=== PATIENT | male | born 1955 | race Caucasian/White ===

== ENCOUNTER 2020-09-16 07:50 | Outpatient (CLI) | payer BC, SELFPAY ==
[2020-09-16 08:13] LABS: Basophils Absolute Auto 0.1 K/mm3 (0.0-0.1); Basophils Percent Auto 1.4 % (0.2-1.2); Eosinophils Absolute Auto 0.2 K/mm3 (0-0.3); Eosinophils Percent Auto 2.7 % (0-4.4); Hematocrit 43.6 % (42.0-52.0); Hemoglobin 14.8 g/dL (14.0-18.0); Immature Granulocyte Absolute 0.04 K/mm3 (0.00-0.031); Immature Granulocyte Percent A 0.7 % (0-0.5); Lymphocytes Absolute Auto 1.03 K/mm3 (0.9-3.2); Lymphocytes Percent Auto 17.7 % (18.3-44.2); Mean Corpuscular HGB Conc 33.9 g/dl (32-36); Mean Corpuscular Hemoglobin 30.4 pg (26-34); Mean Corpuscular Volume 89.5 fl (80-100); Mean Platelet Volume 10.7 fl (7.4-10.4); Monocytes Absolute Auto 0.5 K/mm3 (0.1-0.6); Monocytes Percent Auto 8.1 % (2.6-8.5); Neutrophils Percent Auto 69.4 % (45.5-73.1); Platelet Count Result 147 k/mm3 (150-375); Red Blood Count 4.87 M/mm3 (4.6-6.20); White Blood Count 5.8 K/mm3 (4.5-10.0)
[2020-09-16 08:35] LABS: Albumin Level 4.4 g/dL (3.5-5.1); Alkaline Phosphatase 77 U/L (38-126); Aspartate Amino Transferase 36 U/L (17-59); Bilirubin,Total 0.6 mg/dL (0.2-1.3); Blood Urea Nitrogen 19 mg/dL (9-20); Carbon Dioxide 30 mmol/L (22-30); Cholesterol 116 mg/dL (0-200); Estimated Glomerular Filt Rate > 60; Glucose 138 mg/dL (75-110); Triglycerides 67 mg/dL (<150)
[2020-09-16 08:38] LABS: LDL Cholesterol Direct 44 mg/dL
[2020-09-16 08:58] LABS: Prostate Specific Antigen 1.9 ng/mL (< OR = 4.0)
[2020-09-16 09:41] LABS: Alanine Aminotransferase 38 U/L (4-50); Anion Gap 7 mmol/L (8-16); Chloride 104 mmol/L (98-107); HDL Direct 51 mg/dL; Potassium 4.2 mmol/L (3.4-5.0); Sodium 141 mmol/L (137-145)
[2020-09-16 12:32] LABS: Free T4 Free Thyroxine 1.07 ng/mL (0.78-2.19)
[2020-09-17 09:26] LABS: Hemoglobin A1C 6.8 % (<5.7)
== END 2020-09-16 07:51 | disposition home or self-care (01) ==
PROVIDERS: PCP Family Medicine; Visit Provider Physician Assistant Medical
DX: R41.3 Other amnesia (principal); Z12.5 Encounter for screening for malignant neoplasm of prostate; E03.9 Hypothyroidism, unspecified; I10 Essential (primary) hypertension; E78.5 Hyperlipidemia, unspecified
CPT/HCPCS: 36415; 80053; 80061; 82607; 83036; 84153; 84439; 84443; 85025; G0103

== ENCOUNTER 2020-09-24 13:06 | Outpatient (CLI) | payer BC, SELFPAY ==
[2020-09-30 10:34] LABS: Testosterone Free 62.4 pg/mL (35.0-155.0); Testosterone Total 378 ng/dL (250-1100)
== END 2020-09-24 13:07 | disposition home or self-care (01) ==
PROVIDERS: PCP Family Medicine; Visit Provider Physician Assistant Medical
DX: F32.9 Major depressive disorder, single episode, unspecified (principal); R41.3 Other amnesia
CPT/HCPCS: 36415; 84402; 84403

== ENCOUNTER 2020-10-08 07:52 | Outpatient (CLI) | payer BC, SELFPAY ==
--- NOTE | ~2020-10-08 | CT_ITS ---
EXAMINATION: CT abdomen w con DATE: 10/08/2020 08:24 INDICATION: Mid abdominal pain. History of inguinal hernia and ventral hernia TECHNIQUE: Computed tomography (CT) of the abdomen was performed with 100 cc Omnipaque 350 intravenou s contrast. Automated exposure control and iterative reconstruction technique were employed. Exam dos e: 1203.07 mGy-cm total exam DLP. COMPARISON: None. FINDINGS: Minimal discoid atelectasis or scarring at the lung bases. Heart size is normal. No pericar dial or pleural effusion. 12 mm distal right paraesophageal lymph node. There is soft tissue thickening of the distal esophagea l wall. Consider esophageal workup by barium study or endoscopy. Status post cholecystectomy. No bile duct or pancreatic duct dilatation. No hepatic, splenic, pancrea tic, and adrenal or renal space-occupying mass lesion is evident with exception of a few small renal cysts. Splenomegaly. Normal caliber of the abdominal aorta. No intraperitoneal or retroperitoneal or pelvic mass lesion or adenopathy or ascites. No bowel obstruction, bowel wall thickening, pneumatosis or intraperitoneal free air. Small fat-containing umbilical hernia. Diffuse idiopathic skeletal hyperostosis of the thoracic spine. Multilevel degenerative disc disease of lumbar spine, greatest at L4-5 and L5-S1. Right sacroiliac joint ankylosis. IMPRESSION: Soft tissue thickening of distal esophageal wall and 12 mm right paraesophageal lymph no yumiko; consider esophageal workup by barium examination or endoscopy Status post cholecystectomy Splenomegaly Reviewed, dictated and finalized at [facility]. Reviewed, dictated and finalized at [facility]. IMPRESSION: Soft tissue thickening of distal esophageal wall and 12 mm right p araesophageal lymph nodes; consider esophageal workup by barium examination or endoscopy Status post cholecystectomy Splenomegaly
== END 2020-10-08 07:53 | disposition home or self-care (01) ==
PROVIDERS: PCP Family Medicine; Visit Provider Physician Assistant Medical
DX: K43.9 Ventral hernia without obstruction or gangrene (principal); Z90.49 Acquired absence of other specified parts of digestive tract; R16.1 Splenomegaly, not elsewhere classified
CPT/HCPCS: 74160; Q9967

== ENCOUNTER → 2020-10-21 15:11 | Outpatient (REF) | payer BC, SELFPAY | LOC: ANHLAB 15:11 | PROVIDERS: PCP Family Medicine; Visit Provider Nurse Practitioner | DX: R22.9 Localized swelling, mass and lump, unspecified (principal); L72.0 Epidermal cyst; L57.0 Actinic keratosis | CPT/HCPCS: 88304; 88305 ==

== ENCOUNTER 2020-10-27 09:54 | Outpatient (CLI) | payer BC, SELFPAY ==
--- NOTE | ~2020-10-27 | US_ITS ---
US abdomen complete EXAMINATION: US Abdomen Complete INDICATION: Splenomegaly PROCEDURE: Realtime High Resolution abdomen ultrasound. COMPARISON: Ultrasound dated 12/07/2017 FINDINGS: Gallbladder is surgically absent. Common bile duct measures 6 mm. Liver echotexture within normal limits without focal mass. Pancreas within normal limits. Pancreati c tail is obscured by bowel gas. Spleen is enlarged measuring 13.8 cm. Renal echotexture is within n ormal limits bilaterally without hydronephrosis, contour deforming mass or renal stone. Right kidney measures 10 cm. Left kidney measures 10.1 cm. Visualized aspects of the aorta and IVC are within normal limits. Portal vein is patent. No sonograph ic Connell's sign indicated by the technologist. IMPRESSION: 1: Splenomegaly. Reviewed, dictated and finalized at [facility]. IMPRESSION: 1: Splenomegaly.
== END 2020-10-27 09:55 | disposition home or self-care (01) ==
PROVIDERS: PCP Family Medicine; Visit Provider Physician Assistant Medical
DX: R16.1 Splenomegaly, not elsewhere classified (principal)
CPT/HCPCS: 76700

== ENCOUNTER 2020-10-29 12:20 | Outpatient (CLI) | payer BC, SELFPAY ==
[2020-10-29 13:24] LABS: Alanine Aminotransferase 41 U/L (4-50); Albumin Level 4.6 g/dL (3.5-5.1); Alkaline Phosphatase 103 U/L (38-126); Aspartate Amino Transferase 36 U/L (17-59); Bilirubin,Total 0.9 mg/dL (0.2-1.3); Cholesterol 104 mg/dL (0-200); Creatine Kinase 58 U/L (55-170); HDL Direct 47 mg/dL; Triglycerides 67 mg/dL (<150)
[2020-10-29 13:36] LABS: LDL Cholesterol Direct 38 mg/dL
== END 2020-10-29 12:21 | disposition home or self-care (01) ==
LOC: ANHLAB 12:27
PROVIDERS: PCP Family Medicine; Visit Provider Nurse Practitioner Family
DX: R74.8 Abnormal levels of other serum enzymes (principal); E78.2 Mixed hyperlipidemia
CPT/HCPCS: 36415; 80061; 80076; 82550

== ENCOUNTER 2020-10-30 00:21 | Day surgery (SDC) | payer BC, SELFPAY ==
[2020-10-15 14:25] VITALS: BMI 43.0
[2020-10-30 07:00] VITALS: BP 154/87; PULSE 64; RESP 18; TEMP 36.4; O2SAT 97; BMI 42.7
[2020-10-30] MEDS: LACTATED RINGERS 1,000 ML 30 ML IV CONT (07:09)
--- NOTE | 2020-10-30 07:17 | WPDANESEPPF ---
Anes - Initial Pre Proc Eval Procedure: Operation Date: 10/30/20 08:00 Proposed Procedures p Esophagogastroduodenoscopy & Screening Colonoscopy - Jorge Luis Arias MD Date/Time: 10/30/20 07:17 Surgeon: Jorge Luis Arias MD Pre Op Diagnosis: neoplasm, dysphagia Patient Data Age: 65 Gender: M Height: 1.75 m Weight: 131.5 kg Last Vital Signs Temp 36.4 C L 10/30/20 07:00 Pulse 64 10/30/20 07:00 Resp 18 10/30/20 07:00 BP 154/87 H 10/30/20 07:00 Pulse Ox 97 10/30/20 07:00 Allergies Allergy/AdvReac Type Severity Reaction Status Date / Time amoxicillin Allergy Unknown Unknown Verified 10/30/20 06:58 Penicillins Allergy Unknown FACIAL Verified 10/30/20 06:58 SWELLING Home Medications Medication Instructions Recorded Confirmed Type celecoxib 200 mg capsule 200 mg PO DAILY #90 cap 12/05/19 10/30/20 Rx levothyroxine 125 mcg tablet 125 mcg PO DAILY #90 tablet 05/07/20 10/30/20 Rx citalopram 40 mg tablet 40 mg PO DAILY #90 tablet 09/10/20 10/30/20 Rx atorvastatin 80 mg tablet 80 mg PO DAILY #90 tablet 09/24/20 10/30/20 Rx bupropion HCl 150 mg 24 hr tablet, 150 mg PO QAM #30 tablet 09/24/20 10/30/20 Rx extended release ketoconazole 2 % shampoo 1 applic TOPICAL 2XW #120 ml 10/02/20 10/30/20 Rx lansoprazole 30 mg PO DAILY 10/24/20 10/30/20 History lisinopril 30 mg PO DAILY 10/24/20 10/30/20 History amiloride 5 mg-hydrochlorothiazide See Rx Instructions .ROUTE 10/30/20 10/30/20 Rx 50 mg tablet .COMPLEX #90 tablet Patient hx anesthesia problems: none Family hx anesthesia problems: none PMFSH Past Medical History Medical History Acute CVA (cerebrovascular accident) Basal cell carcinoma of nose BMI 40.0-44.9, adult CVA, old, cognitive deficits Essential hypertension History of throat cancer Hyperlipidemia Hypothyroidism, unspecified Surgical History Surgical History (Updated 10/30/20 @ 07:17 by Adrian Rubalcava MD) 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 Family History Family History Sibling Family history of diabetes mellitus in first degree relative Diabetes mellitus Father Family history of lymphoma Family history of malignant neoplasm Grandparent Family history of malignant neoplasm of esophagus Mother Family history of Alzheimer's disease Social History Social History Smoking packs per day: 2 Smoking cigarettes per day: 40.0 Years smoked: 15 Smoking pack-years: 30.00 Smoking status: Former smoker Smoking end date: 04/04/11 Alcohol intake: current Drinks per week: 6 Substance use: never Substance use type: does not use Living arrangements: with family Gender identity (if verbalized by the patient): Female Spiritual care concerns: No Anes - Eval Final PreProcedure Day of Procedure 10/30/20 07:17 Patient weight: morbidly obese Heart: regular rate and rhythm Lungs: clear to auscultation Airway: Mallampati scale class II Neurological: alert and oriented Last oral intake: >/= 8 hours ASA classification: III Emergent: no Anesthetic plan: proceed Anesthesia type and monitoring: general GIVS and standard monitoring Informed Consent: The patient's anesthetic plan and its attendant risks and benefits were discussed with the patient/family/POA. Questions were solicited and answers provided to the satisfaction of the patient/family/POA.
--- NOTE | 2020-10-30 07:27 | PM.HPGS ---
History of Present Illness History of Present Illness Consent: Risks, benefits, and alternatives have been discussed and questions answered. Patient agrees to proceed with procedure. Chief complaint: neoplasm, dysphagia Narrative: Cedric Salamanca is a 65 year old male who was referred because of difficulty swallowing and for colon cancer screening. He states that he has had some issues with swallowing ever since he had throat surgery for cancer 15 years ago. More recently, he needs to eat very slowly. Even liquids will sometimes give him difficulty. He was having abdominal discomfort and what he thought was a hernia. A CT scan of the abdomen was done and revealed thickening of the distal esophagus. He has had no weight loss. He does not feel that food gets stuck in the substernal area. Review of Systems Review of Systems: All systems reviewed & are unremarkable except as noted in HPI and below PMFSH Past Medical History Medical History Acute CVA (cerebrovascular accident) Basal cell carcinoma of nose BMI 40.0-44.9, adult CVA, old, cognitive deficits Essential hypertension History of throat cancer Hyperlipidemia Hypothyroidism, unspecified Surgical History Surgical History 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 Family History Family History Sibling Family history of diabetes mellitus in first degree relative Diabetes mellitus Father Family history of lymphoma Family history of malignant neoplasm Grandparent Family history of malignant neoplasm of esophagus Mother Family history of Alzheimer's disease Social History Social History Smoking packs per day: 2 Smoking cigarettes per day: 40.0 Years smoked: 15 Smoking pack-years: 30.00 Smoking status: Former smoker Smoking end date: 04/04/11 Alcohol intake: current Drinks per week: 6 Substance use: never Substance use type: does not use Living arrangements: with family Gender identity (if verbalized by the patient): Female Spiritual care concerns: No Meds Home Medications and Allergies Home Medications Medication Instructions Recorded Confirmed Type celecoxib 200 mg capsule 200 mg PO DAILY #90 cap 12/05/19 10/30/20 Rx levothyroxine 125 mcg tablet 125 mcg PO DAILY #90 tablet 05/07/20 10/30/20 Rx citalopram 40 mg tablet 40 mg PO DAILY #90 tablet 09/10/20 10/30/20 Rx atorvastatin 80 mg tablet 80 mg PO DAILY #90 tablet 09/24/20 10/30/20 Rx bupropion HCl 150 mg 24 hr tablet, 150 mg PO QAM #30 tablet 09/24/20 10/30/20 Rx extended release ketoconazole 2 % shampoo 1 applic TOPICAL 2XW #120 ml 10/02/20 10/30/20 Rx lansoprazole 30 mg PO DAILY 10/24/20 10/30/20 History lisinopril 30 mg PO DAILY 10/24/20 10/30/20 History amiloride 5 mg-hydrochlorothiazide See Rx Instructions .ROUTE 10/30/20 10/30/20 Rx 50 mg tablet .COMPLEX #90 tablet Allergies Allergy/AdvReac Type Severity Reaction Status Date / Time amoxicillin Allergy Unknown Unknown Verified 10/30/20 06:58 Penicillins Allergy Unknown FACIAL Verified 10/30/20 06:58 SWELLING Vital Signs Vital Signs - 24 hr 10/30/20 07:00 Temperature 36.4 C L Pulse Rate 64 Respiratory Rate 18 Blood Pressure 154/87 H Pulse Oximetry 97 Exam Const: General: alert Orientation/consciousness: patient oriented x3 Resp: Auscultation: clear to auscultation bilaterally Cardio: Rhythm: regular rhythm GI: GI Palp: Yes Soft to palpation and No Tenderness to palpation present (GI) Neuro: General: patient oriented x3 Assessment and Plan Assessment and plan (1) Screening for colon cancer: Code(s): Z12.11 - Encounter for screening for malignant neoplasm of colon Status: Acute Assessment and Plan: Colonoscopy with possible biopsy or p
[2020-10-30 08:29] VITALS: BP 118/74; PULSE 68; RESP 22; O2SAT 95
[2020-10-30 08:39] VITALS: BP 164/97; PULSE 74; RESP 19; O2SAT 100
[2020-10-30 08:49] VITALS: BP 151/87; PULSE 72; RESP 22; O2SAT 99
== END 2020-10-30 08:59 | disposition home or self-care (01) ==
PROVIDERS: PCP Family Medicine; Visit Provider Internal Medicine Gastroenterology
PROC: 0DJ08ZZ Inspection of Upper Intestinal Tract, Via Natural or Artificial Opening Endoscopic (ICD-10-PCS; CPT 43235; principal; 2020-10-30 08:00)
DX: Z12.11 Encounter for screening for malignant neoplasm of colon (principal); K57.30 Diverticulosis of large intestine without perforation or abscess without bleeding; R13.10 Dysphagia, unspecified; K21.00 Gastro-esophageal reflux disease with esophagitis, without bleeding; K29.70 Gastritis, unspecified, without bleeding; I10 Essential (primary) hypertension; E78.5 Hyperlipidemia, unspecified; E03.9 Hypothyroidism, unspecified; Z86.73 Personal history of transient ischemic attack (TIA), and cerebral infarction without residual deficits; Z85.819 Personal history of malignant neoplasm of unspecified site of lip, oral cavity, and pharynx; Z87.891 Personal history of nicotine dependence; E66.01 Morbid (severe) obesity due to excess calories; Z68.41 Body mass index [BMI] 40.0-44.9, adult
CPT/HCPCS: 45378; 43239; 87081; 88305; J7120

== ENCOUNTER 2021-07-20 15:11 | Outpatient (CLI) | payer MEDICARE, SELFPAY ==
--- NOTE | 2021-07-20 15:26 | ECG_ITS ---
Measurements Intervals [place] Rate: 78 P: 59 VT: 161 QRS: -5 QRSD: 101 T: 48 QT: 360 QTc: 411 Interpretive Statements SINUS RHYTHM BASELINE ARTIFACT NONSPECIFIC T-WAVE ABNORMALITY LATERAL LEADS BORDERLINE ECG NO PREVIOUS ECG AVAILABLE FOR COMPARISON Electronically Signed On 07-20-2021 17:08:26 CDT by Wei Montero M.D.
[2021-07-20 15:31] LABS: Hematocrit 47.3 % (42.0-52.0); Hemoglobin 15.9 g/dL (14.0-18.0); Mean Corpuscular HGB Conc 33.6 g/dl (32-36); Mean Corpuscular Hemoglobin 30.6 pg (26-34); Mean Platelet Volume 10.9 fl (7.4-10.4); Platelet Count Result 191 k/mm3 (150-375); Red Cell Distribution Width 12.3 % (11.5-14.5); White Blood Count 6.9 K/mm3 (4.5-10.0)
[2021-07-20 15:44] LABS: Anion Gap 6 mmol/L (8-16); Blood Urea Nitrogen 11 mg/dL (9-20); Calcium 9.4 mg/dL (8.4-10.2); Carbon Dioxide 28 mmol/L (22-30); Chloride 99 mmol/L (98-107); Estimated Glomerular Filt Rate > 60; Glucose 148 mg/dL (65-110); Potassium 4.1 mmol/L (3.4-5.0); Sodium 133 mmol/L (137-145)
[2021-07-20 16:42] LABS: Erythrocyte Sedimentation Rate 1 mm/hr (0-20)
[2021-07-20 18:09] LABS: Free T4 Free Thyroxine 0.95 ng/mL (0.78-2.19)
== END 2021-07-20 15:12 | disposition home or self-care (01) ==
PROVIDERS: PCP Family Medicine; Visit Provider Family Medicine
DX: E55.9 Vitamin D deficiency, unspecified (principal); I10 Essential (primary) hypertension; R79.89 Other specified abnormal findings of blood chemistry; M25.541 Pain in joints of right hand; M25.542 Pain in joints of left hand; E03.9 Hypothyroidism, unspecified
CPT/HCPCS: 36415; 80048; 82306; 84439; 84443; 85027; 85652; 93005

== ENCOUNTER 2021-09-24 21:25 | Emergency (ER) | payer MEDICARE, SELFPAY ==
[2021-09-24] VITALS (8 sets, daily range): BP systolic 120–131; BP diastolic 67–106; PULSE 74–90; RESP 17–19; TEMP 36.2; O2SAT 93–96
--- NOTE | ~2021-09-24 | CT_ITS ---
IMPRESSION: 1. No CT correlate for the patient's symptoms. EXAMINATION: CT abdomen pelvis w con INDICATION: Right flank pain TECHNIQUE: Computed tomographic images of the abdomen and pelvis were obtained after the administrati on of 100 cc of Omnipaque 300 intravenous contrast. The dose-length product (DLP) was 1706.77 mGy-cm. Automated exposure control and iterative reconstruction technique were employed. COMPARISON: 10/08/2020 FINDINGS: Minimal dependent atelectasis is present in the lung bases. The heart size is normal. There is calcified coronary artery atherosclerosis. The gallbladder is surgically absent. The liver, splee n, pancreas, and adrenal glands are normal. The kidneys are unremarkable. No pathologically enlarged abdominal or pelvic lymph nodes are identified. The appendix is normal. There is no free intraperiton eal gas or evidence of bowel obstruction. 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 IMPRESSION: 1. No CT correlate for the patient's symptoms. Reviewed, dictated and finalized at [facility].
--- NOTE | 2021-09-24 22:06 | ED.ABDPAIN ---
HPI - Abdominal Pain General Chief Complaint: Abdominal Pain Stated Complaint: right flank pain possible kidney stone Time Seen by Provider: 09/24/21 21:38 History of Present Illness HPI narrative: Patient is a 66-year-old male here for evaluation of right-sided flank pain for the past week. Patient states the pain is intermittent in nature, severe and stabbing in nature. Today, the pain began to radiate to his right lower quadrant which prompted his ED evaluation. He has attempted Tylenol at home without much relief of his pain. Denies chest pain, shortness of breath, fevers, chills, nausea, vomiting, changes to his stools. Related Data Allergies Allergy/AdvReac Type Severity Reaction Status Date / Time amoxicillin Allergy Unknown Unknown Verified 09/24/21 21:32 Penicillins Allergy Unknown FACIAL Verified 09/24/21 21:32 SWELLING Review of Systems Review of Systems: Gen: Denies fevers or chills Eyes: Denies eye pain or visual change ENT: Denies congestion Respiratory: Denies shortness of breath or cough CV: Denies chest pain or palpitations GI: Reports abdominal pain and flank pain. Denies nausea, emesis or diarrhea denies burning, urgency, frequency or hematuria Musculoskeletal: Reports right back pain. 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 Family History Family History Sibling Family history of diabetes mellitus in first degree relative Diabetes mellitus Father Family history of lymphoma Family history of malignant neoplasm Grandparent Family history of malignant neoplasm of esophagus Mother Family history of Alzheimer's disease Social History Social History Smoking packs per day: 2 Smoking cigarettes per day: 40.0 Years smoked: 15 Smoking pack-years: 30.00 Smoking status: Former smoker Smoking end date: 04/04/11 Alcohol intake: current Drinks per week: 6 Substance use: never Substance use type: does not use Gender identity (if verbalized by the patient): Female Spiritual care concerns: No Exam Narrative: APPEARANCE: Well appearing, no pain in distress, well-nourished. Head: Normocephalic and atraumatic. EYES: PERRLA/EOMI, conjunctivae clear NOSE: No nasal drainage EARS: External ear normal in appearance THROAT: Oropharynx is clear. Mucous membranes are moist. NECK: Supple. No adenopathy, no masses. RESPIRATORY: Airway patent, respirations nonlabored. Clear to auscultation bilaterally, no rales, rhonchi, wheezing. CARDIOVASCULAR: Regular rate and rhythm without murmurs, rubs, or gallops. ABDOMINAL: Abdomen is firm. Non-tender. MUSCULOSKELETAL: Extremities are warm and well-perfused. Moves all extremities well. No edema. NEURO: Normal speech. No focal neurologic deficits. SKIN: Skin is warm and dry. No rashes. PSYCHIATRIC: Normal affect/mood. Course Vital Signs Vital signs: Vital Signs Temperature 97.1 F L 09/24/21 21:29 Pulse Rate 90 09/24/21 21:29 Respiratory Rate 19 09/24/21 21:29 Blood Pressure 124/82 09/24/21 21:29 Pulse Oximetry 95 09/24/21 21:29 Oxygen Delivery Room Air 09/24/21 21:29 Temperature 97.1 F L 09/24/21 21:29 Pulse Rate 78 09/24/21 23:46 Respiratory Rate
[2021-09-24 22:08] LABS: Basophils Absolute Auto 0.1 K/mm3 (0.0-0.1); Basophils Percent Auto 0.9 % (0.2-1.2); Eosinophils Absolute Auto 0.2 K/mm3 (0-0.3); Eosinophils Percent Auto 2.1 % (0-4.4); Hematocrit 46.4 % (42.0-52.0); Hemoglobin 15.8 g/dL (14.0-18.0); Immature Granulocyte Absolute 0.03 K/mm3 (0.00-0.031); Immature Granulocyte Percent A 0.3 % (0-0.5); Lymphocytes Percent Auto 12.6 % (18.3-44.2); Mean Corpuscular HGB Conc 34.1 g/dl (32-36); Mean Corpuscular Hemoglobin 30.6 pg (26-34); Mean Corpuscular Volume 89.9 fl (80-100); Mean Platelet Volume 10.5 fl (7.4-10.4); Monocytes Absolute Auto 0.9 K/mm3 (0.1-0.6); Monocytes Percent Auto 8.3 % (2.6-8.5); Neutrophils Absolute Auto 7.8 K/mm3 (1.3-6.7); Neutrophils Percent Auto 75.8 % (45.5-73.1); Platelet Count Result 236 k/mm3 (150-375); Red Blood Count 5.16 M/mm3 (4.6-6.20); White Blood Count 10.3 K/mm3 (4.5-10.0)
[2021-09-24 22:09] LABS: Add Urine Microscopic? YES; Appearance Urine Clear (Clear); Bilirubin Urine 1+ (Negative); Blood Urine Negative (Negative); Color Urine Yellow (Yellow); Glucose Urine UA Negative (Negative); Ketones Urine Trace mg/dL (Negative); Leukocyte Esterase Ur Negative LEU/UL (Negative); Nitrate Urine Negative (Negative); Protein Urine Negative (Negative); Urobilinogen Urine 0.2 mg/dL (<2.0)
[2021-09-24 22:12] LABS: Bacteria Urine Trace /hpf; Mucus Urine Rare /lpf; RBC Urine 0-2 /hpf (0-2); Squamous Epithelial Cell Urine Rare /hpf (Few); WBC Urine 0-3 /hpf
[2021-09-24] MEDS: MORPHINE SULFATE (*CRX) 4 MG/ML INJ IV PUSH (22:14)
[2021-09-24] MEDS: SODIUM CHLORIDE 0.9% IV 1,000 ML 999 ML (22:15)
[2021-09-24 22:19] LABS: Alanine Aminotransferase 23 U/L (6-50); Albumin Level 4.5 g/dL (3.5-5.1); Alkaline Phosphatase 78 U/L (38-126); Anion Gap 7 mmol/L (8-16); Aspartate Amino Transferase 26 U/L (17-59); Bilirubin,Total 0.4 mg/dL (0.2-1.3); Blood Urea Nitrogen 19 mg/dL (9-20); Calcium 9.4 mg/dL (8.4-10.2); Carbon Dioxide 27 mmol/L (22-30); Chloride 101 mmol/L (98-107); Estimated CRCL calculation 67 ml/min; Estimated Glomerular Filt Rate 55; Glucose 136 mg/dL (65-110); Sodium 135 mmol/L (137-145)
[2021-09-24] MEDS: IBUPROFEN 400 MG TABLET 800 MG PO (23:39)
[2021-09-24] MEDS: LIDOCAINE 5% PATCH 1 PATCH TRANSDERM (23:55)
== END 2021-09-25 00:33 | disposition home or self-care (01) ==
PROVIDERS: Physician Assistant; Emergency Provider Emergency Medicine; PCP Family Medicine
DX: S33.5XXA Sprain of ligaments of lumbar spine, initial encounter (principal); I10 Essential (primary) hypertension; E78.5 Hyperlipidemia, unspecified; E03.9 Hypothyroidism, unspecified; I69.919 Unspecified symptoms and signs involving cognitive functions following unspecified cerebrovascular disease; M17.10 Unilateral primary osteoarthritis, unspecified knee; E66.01 Morbid (severe) obesity due to excess calories; Z68.41 Body mass index [BMI] 40.0-44.9, adult; Z85.818 Personal history of malignant neoplasm of other sites of lip, oral cavity, and pharynx; Z85.828 Personal history of other malignant neoplasm of skin; Z87.891 Personal history of nicotine dependence; X58.XXXA Exposure to other specified factors, initial encounter
CPT/HCPCS: 36415; 74177; 80053; 81001; 85025; 86850; 86880; 86900; 86901; 96374; 99284; A9270; J2270; J7030; Q9967